=== PATIENT | female | born 1955 | race Caucasian/White ===

== ENCOUNTER 2020-04-14 10:58 | Emergency (ER) | payer OTHER, BC ==
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
[2020-04-14] MEDS ORDERED: Iopamidol 612 MG/ML 50 ML SDV IVPUSH ONE (11:53)
[2020-04-14] MEDS ORDERED: Iopamidol 612 MG/ML 100 ML Bottle IVPUSH ONE (11:53)
--- NOTE | 2020-04-14 12:19 | CT ---
CT lumbar spine Technique: Multiple axial sections were obtained from above the L1 level inferiorly through the L5-S1 disc. Reconstructed coronal and sagittal images were obtained. Comparison: No previous lumbar spine imaging is available. Findings: Severe disc space narrowing is noted at L5-S1 with vacuum disc phenomena. Scattered degenerative apophyseal change is seen. Focal increased stool is noted within the rectum. Mild scattered disc bulging is seen with no central canal stenosis. Neural foramina appear to be patent where the nerve roots exit. No fracture is appreciated. No abnormal subluxation is seen. Impression: 1. Degenerative change as noted above. 2. No acute fracture or abnormal subluxation is appreciated. 3. Increased stool within the rectum. Diagnostic code #2
--- NOTE | 2020-04-14 12:19 | CT ---
CT thoracic spine Technique: Multiple axial sections through the thoracic spine were obtained. Reconstructed coronal and sagittal images were obtained. Comparison: No previous thoracic spine imaging is available. Findings: Mild diffuse disc space narrowing within the visualized cervical spine and within the thoracic spine is noted. Vertebral body heights are maintained. Mild scattered degenerative apophyseal change is seen. No central canal stenosis is appreciated. Neural foramina are grossly patent. No acute fracture is appreciated. Impression: 1. Degenerative change as noted above. 2. Nothing acute is appreciated on CT study of the thoracic spine. Diagnostic code #2
--- NOTE | 2020-04-14 12:30 | CR ---
Right tibia and fibula: 2 views of the right tibia and fibula were obtained. Comparison: No previous study. Small soft tissue calcification is seen within the mid anterior roberts which is believed to be chronic. No acute fracture or other abnormality is appreciated. Impression: 1. Nothing acute is seen on 2 view right tibia and fibula study. Diagnostic code #2
--- NOTE | 2020-04-14 12:30 | CR ---
Right femur: AP and lateral views of the right femur were obtained. Right hip prosthesis is noted. Contrast is seen within the urinary system compatible with previous CT exam. No acute fracture or subluxation is seen. Impression: 1. Findings as noted above. 2. Nothing acute is appreciated on 2 view right femur exam. Diagnostic code #2
--- NOTE | 2020-04-14 12:32 | CT ---
CT chest Technique: Multiple axial sections were obtained through the chest. Intravenous contrast was utilized. Reconstructed coronal and sagittal images were obtained. Findings: Small amount of air is seen within the veins compatible with small amount of injected air from contrast injection which is felt to be incidental. Thoracic aorta shows no aneurysm. Pulmonary arteries are fairly well opacified with no gross evidence of pulmonary embolism. No mediastinal abnormality is seen. No pericardial thickening is appreciated. Lung window settings were reviewed which show no acute parenchymal change. Bone window settings were reviewed which show no acute osseous finding being seen. Impression: 1. Nothing acute is appreciated on CT study of the chest. Diagnostic code #2 CT abdomen and pelvis Technique: Multiple axial sections were obtained from above the dome of the diaphragm inferiorly through the pubic symphysis. Intravenous contrast was utilized. No oral contrast has been given. Findings: Liver shows a minimal low density finding measuring less than 5 mm which is too small to be accurately measured by Hounsfield measurements but most likely represents a minimal cyst. Spleen appears normal. Adrenal glands are normal. Pancreas appears within normal limits. Gallbladder contains no calcified gallstones. Kidneys show symmetric contrast enhancement with no hydronephrosis. Aorta shows no aneurysm. No retroperitoneal adenopathy or mesenteric abnormalities are seen. No pelvic mass or adenopathy is noted. Bilateral hip prostheses are noted causing artifact. Appendix is seen and appears normal. No free fluid or inflammatory change is appreciated. Mild increased stool within the colon as well as rectum is seen. Bone window settings were reviewed which show previously described degenerative change within the lumbar spine. Delayed images show contrast within the distal ureters and within the bladder. Impression: 1. Mild increased stool within the colon and rectum. 2. No acute abnormality is appreciated on CT study of the abdomen and pelvis. Diagnostic code #1
== END 2020-04-14 13:02 | disposition home or self-care (01) ==
LOC: JD.ED 10:58
DX: S80.01XA Contusion of right knee, initial encounter (principal); S80.02XA Contusion of left knee, initial encounter; S30.0XXA Contusion of lower back and pelvis, initial encounter; S20.222A Contusion of left back wall of thorax, initial encounter; Z88.5 Allergy status to narcotic agent; Z86.16 Personal history of COVID-19; V89.2XXA Person injured in unspecified motor-vehicle accident, traffic, initial encounter
CPT/HCPCS: 36415; 71260; 72128; 72131; 73552; 73590; 74177; 80053; 82150; 82550; 85025; 99285; Q9967